=== PATIENT | female | born 1995 | race Caucasian/White ===

== ENCOUNTER 2017-03-11 13:03 | Observation (INO) | payer OTHER ==
[~2017-03-11] VITALS: Ht 162.6 cm; Wt 95.3 kg
[~2017-03-11 13:03] MED LIST: ONDA4ODT2 PO; PREN-234 PO
[2017-03-11 13:49] VITALS: BP 125/76
== END 2017-03-11 15:58 | disposition home or self-care (01) ==
LOC: MLD 13:03
PROVIDERS: ADMIT Obstetrics & Gynecology; ATTEND Obstetrics & Gynecology
DX: O62.9 Abnormality of forces of labor, unspecified (principal); Z3A.37 37 weeks gestation of pregnancy
CPT/HCPCS: 76805; 76819; G0378; Q0092

== ENCOUNTER 2017-03-16 14:46 | Inpatient (IN) | payer OTHER ==
[~2017-03-16] VITALS: Ht 162.6 cm; Wt 95.3 kg
[2017-03-16] MEDS ORDERED: FERR325E14 PO (15:42)
[2017-03-16] MEDS ORDERED: LACTATED RINGERS 1,000 ML IV SCH (15:42)
[2017-03-16] MEDS ORDERED: NALBUPHINE HYDROCHLORIDE 10 MG/ML VIAL IVP PRN (15:45)
[2017-03-16] MEDS ORDERED: PROMETHAZINE 25 MG/ML VIAL IVP PRN (15:45)
[2017-03-16] MEDS ORDERED: CARBOPROST 250 MCG/ML AMP IM PRN (15:45)
[2017-03-16] MEDS ORDERED: METHYLERGONOVINE 0.2 MG/ML AMP IM PRN (15:45)
[2017-03-16] MEDS ORDERED: OXYTOCIN 10 UNITS/ML VIAL IM SCH (15:45)
[2017-03-16] MEDS ORDERED: MISOPROSTOL 25 MCG TAB VG PRN (16:00)
[2017-03-16 16:27] LABS: BASOPHILS # (AUTO) 0.1 K/uL (0.00-0.22); BASOPHILS % (AUTO) 0.6 % (0.0-2.0); EOSINOPHILS # (AUTO) 0.2 K/uL (0-0.4); EOSINOPHILS % (AUTO) 1.5 % (0.0-4.0); HEMATOCRIT 37.2 % (36-48); HEMOGLOBIN 12.3 g/dL (12.0-16.0); LYMPHOCYTES # (AUTO) 2.3 K/uL (2.5-16.5); LYMPHOCYTES % (AUTO) 19.4 % (20.5-51.1); MEAN CORPUSCULAR HEMOGLOBIN 31 pg (27-31); MEAN CORPUSCULAR HGB CONC 33 g/dL (33-37); MEAN CORPUSCULAR VOLUME 92 fL (80-94); MONOCYTES # (AUTO) 0.8 K/uL (0.8-1.0); MONOCYTES % (AUTO) 6.7 % (1.7-9.3); NEUTROPHILS # (AUTO) 8.4 K/uL (1.8-7.7); NEUTROPHILS % (AUTO) 71.8 % (42.2-75.2); PLATELET COUNT (AUTO) 293 K/uL (140-450); RED BLOOD CELL COUNT(AUTO) 4.04 MIL/uL (4.20-5.40); RED CELL DISTRIBUTION WIDTH 12.1 % (11.6-13.7); WHITE BLOOD COUNT (AUTO) 11.8 K/uL (4.8-10.8)
[2017-03-16 16:34] LABS: APPEARANCE,URINE CLEAR (CLEAR); BILIRUBIN,URINE NEGATIVE (NEGATIVE); BLOOD, URINE NEGATIVE (NEGATIVE); COLOR,URINE YELLOW (YELLOW); LEUKOCYTE ESTERASE ,URINE NEGATIVE (NEGATIVE); NITRITE, URINE NEGATIVE (NEGATIVE); PROTEIN,URINE NEGATIVE (NEGATIVE); UGLUCOSE NEGATIVE (NEGATIVE)
[2017-03-16 16:40] LABS: ANION GAP 10.5 (8-16); CALCIUM 8.8 mg/dL (8.5-10.1); CARBON DIOXIDE 24.1 mmol/L (21-32); CREATININE 0.6 mg/dL (0.6-1.3); POTASSIUM 3.6 mmol/L (3.5-5.1)
[2017-03-16 16:46] LABS: ALBUMIN 2.4 g/dL (3.4-5.0); TOTAL BILIRUBIN 0.3 mg/dL (0.0-1.0); TOTAL PROTEIN, SERUM 6.7 g/dL (6.4-8.2)
[2017-03-16] MEDS ORDERED: MISOPROSTOL 25 MCG TAB ONE (20:20)
[2017-03-16] MEDS ORDERED: OXYTOCIN 20 UNITS/LR PREMIX 1,000 ML IV SCH (22:00)
--- NOTE | 2017-03-17 06:56 | NUR ---
PATIENT HAS BEEN SCREENED AND CATEGORIZED LOW NUTRITION RISK. PATIENT WILL BE SEEN WITHIN 7 DAYS OF ADMISSION. 03/23/17 SALINA FARLEY MS, RDN
[2017-03-17] MEDS ORDERED: OXYTOCIN 20 UNITS/LR PREMIX 1,000 ML IV ONE (10:14)
[2017-03-17] MEDS ORDERED: NALBUPHINE HYDROCHLORIDE 10 MG/ML VIAL ONE (13:49)
[2017-03-17] MEDS ORDERED: PROMETHAZINE 25 MG/ML VIAL ONE (13:49)
[2017-03-17] MEDS ORDERED: LIDOCAINE 1% 50 ML ONE (16:35)
[2017-03-17] MEDS ORDERED: LIDOCAINE 1% 500 MG/50 ML VIAL INJ SCH (16:45)
[2017-03-17] MEDS ORDERED: OXYTOCIN 10 UNITS/ML VIAL ONE (17:33)
[2017-03-17] MEDS ORDERED: NALOXONE 0.4 MG/ML VIAL ONE (17:43)
[2017-03-17] MEDS ORDERED: OXYTOCIN 20 UNITS/LR PREMIX 1,000 ML IV SCH (18:27)
[2017-03-17] MEDS ORDERED: MEASLES, MUMPS, AND RUBELLA 1 VIAL SQVAC PRN (18:30)
[2017-03-17] MEDS ORDERED: BENZOCAINE/MENTHOL 20%-0.5% 60 GM CAN TP PRN (18:30)
[2017-03-17] MEDS ORDERED: oxyCODONE/APAP 5/325 MG 1 TAB TAB PO PRN (18:30)
[2017-03-17] MEDS ORDERED: WITCH HAZEL 40 PAD PACKAGE TP PRN (18:30)
[2017-03-17] MEDS ORDERED: oxyCODONE/APAP 5/325 MG 1 TAB TAB ONE (19:55)
[2017-03-18 08:12] LABS: HEMATOCRIT 33.6 % (36-48); HEMOGLOBIN 11.1 g/dL (12.0-16.0); MEAN CORPUSCULAR HEMOGLOBIN 31 pg (27-31); MEAN CORPUSCULAR HGB CONC 33 g/dL (33-37); MEAN CORPUSCULAR VOLUME 93 fL (80-94); PLATELET COUNT (AUTO) 292 K/uL (140-450); RED BLOOD CELL COUNT(AUTO) 3.64 MIL/uL (4.20-5.40); RED CELL DISTRIBUTION WIDTH 12.1 % (11.6-13.7); WHITE BLOOD COUNT (AUTO) 18.4 K/uL (4.8-10.8)
[2017-03-18 09:27] LABS: BAND % (MANUAL) 4 % (0-8); LYMPHOCYTES % (MANUAL) 19 % (20-46); MONOCYTES % (MANUAL) 3 % (5-12); NEUTROPHILS % (MANUAL) 74 (43-65); PLATELET ESTIMATE ADEQUATE
[2017-03-18] MEDS: ACETAMINOPHEN 325 MG TAB PO PRN (14:50)
[2017-03-18 16:40] LABS: AMPHETAMINE, URINE NEG. ng/ml (NEG <=1000); BARBITURATE, URINE NEG. ng/ml (NEG <=200); BENZODIAZEPINE, URINE NEG. ng/mL (NEG <=200); CANNABINOID, URINE NEG. ng/mL (NEG <=50); COCAINE, URINE NEG. ng/mL (NEG <=300); OPIATE, URINE NEG. ng/mL (NEG <=2000); PHENCYCLIDINE SCREEN,URINE NEG. ng/mL (NEG <=25)
[2017-03-19] MEDS: ACETAMINOPHEN 325 MG TAB PO PRN ×2 (02:22→10:19)
[2017-03-19] MEDS ORDERED: FERR325E14 PO (15:27)
[2017-03-19] MEDS ORDERED: ACET-9800 PO (15:31)
== END 2017-03-19 16:30 | disposition home or self-care (01) | DRG 560 ==
LOC: MLD 14:46 → OBSVTOIN 14:46 → MFCC 03-17 20:55
PROVIDERS: ADMIT Obstetrics & Gynecology; ATTEND Obstetrics & Gynecology
PROC: 10E0XZZ Delivery of Products of Conception, External Approach (ICD-10-PCS; principal; 2017-03-17)
PROC: 10907ZC Drainage of Amniotic Fluid, Therapeutic from Products of Conception, Via Natural or Artificial Opening (ICD-10-PCS; 2017-03-17)
PROC: 3E0P7GC Introduction of Other Therapeutic Substance into Female Reproductive, Via Natural or Artificial Opening (ICD-10-PCS; 2017-03-17)
PROC: 3E0234Z Introduction of Serum, Toxoid and Vaccine into Muscle, Percutaneous Approach (ICD-10-PCS; 2017-03-18)
DX: O80 Encounter for full-term uncomplicated delivery (principal); Z23 Encounter for immunization; Z37.0 Single live birth; Z3A.39 39 weeks gestation of pregnancy
CPT/HCPCS: 36415; 51702; 59200; 59409; 76815; 80053; 80305; 81003; 85025; 86592; 86886; 86900; 86901; 90715; J2001; J2300; J2310; J2550; J2590; J7120; Q0092

== ENCOUNTER 2021-04-06 14:29 | Emergency (ER) | payer OTHER ==
[~2021-04-06] VITALS: Ht 162.6 cm; Wt 104.8 kg
[~2021-04-06 14:29] MED LIST changes: +ACET-9800 PO; +FERR325E14 PO; -ONDA4ODT2 PO
[2021-04-06 14:50] VITALS: BP 117/69
[2021-04-06] MEDS ORDERED: PROCHLORPERAZINE 10 MG/2 ML VIAL IM ONE (14:50)
[2021-04-06] MEDS ORDERED: diphenhydrAMINE 50 MG/ML VIAL IM ONE (14:50)
[2021-04-06] MEDS ORDERED: KETOROLAC 30 MG/ML VIAL IM ONE (14:50)
--- NOTE | 2021-04-06 14:55 | NUR ---
PT GIVEN URINE CUP, LOBBY
--- NOTE | 2021-04-06 15:51 | NUR ---
Patient ambulated to bed 9 with family. RN is evaluating the patient at bedside.
[2021-04-06] MEDS ORDERED: diphenhydrAMINE 50 MG/ML VIAL ONE (16:03)
[2021-04-06] MEDS ORDERED: PROCHLORPERAZINE 10 MG/2 ML VIAL ONE (16:03)
[2021-04-06] MEDS ORDERED: KETOROLAC 30 MG/ML VIAL ONE (16:03)
--- NOTE | 2021-04-06 16:29 | NUR ---
25/F presents to ED with c/o headache. Patient states she has had intermittent headache since sunday with no relief. Reports taking Tylenol at home with very mild relief. Patient states she has "never experienced this before." Patient states at this time the pain is very mild, denies blurred vision or weakness, patient alert and oriented x4, answering questions appropriately in full clear sentences.
--- NOTE | 2021-04-06 16:51 | NUR ---
Patient asked to wait in lobby for discharge instructions.
--- NOTE | 2021-04-06 17:18 | NUR ---
Patient discharged with v/s stable. Written and verbal after care instructions given and explained. Patient verbalized understanding. Ambulatory with steady gait. All questions addressed prior to discharge. Advised to follow up with PMD.
== END 2021-04-06 17:18 | disposition home or self-care (01) ==
LOC: MED 14:29
DX: R51.9 Headache, unspecified (principal); R42 Dizziness and giddiness; Z79.899 Other long term (current) drug therapy
CPT/HCPCS: 81002; 81025; 96372; 99284; J0780; J1200; J1885